=== PATIENT | female | born 1970 | race Caucasian/White ===

== ENCOUNTER → 2019-12-12 09:40 | Outpatient (CLI) | payer MEDICARE, SELFPAY ==
[2016-12-15 09:17] VITALS: BMI 32.7
[2019-12-12 12:14] LABS: Absolute Lymphocyte Count 1.62 X10^3/uL (0.83-4.51); Absolute Neutrophil Count 2.4 X10^3/uL (2.0-7.7); Basophil# 0.02 X10^3/uL; Basophil% 0.4 % (0-1); Eosinophil# 0.07 X10^3/uL; Eosinophils% 1.5 % (0-5); Hematocrit 38.8 % (37-47); Hemoglobin 13.2 g/dL (12.0-15.0); Lymphocyte # 1.62 X10^3/ul (4.0); Lymphocyte % 35.8 % (19-41); Mean Corpuscular Hgb 29.6 pg (27.0-32.0); Mean Platelet Vol. 11.5 fl (6.2-12.0); Monocyte# 0.45 X10^3/uL; NRBC Flagged by Analyzer 0 % (0-5); Neutrophil # 2.35 X10^3/uL (2.7-7.7); Neutrophil % 52.1 % (47-70); Platelet Count 170 K/mm3 (150-450); RBC Distribution Width CV 12.5 % (11.6-14.6); RBC Distribution Width SD 39.3 fl (35.1-43.9); Red Blood Count 4.46 M/mm3 (4.2-5.4); White Blood Count 4.5 K/mm3 (4.4-11.0)
[2019-12-12 12:28] LABS: Vitamin B12 > 2000 pg/mL (211-911)
[2019-12-12 12:51] LABS: ALB/GLOB Ratio 1.4 RATIO (0.9-2.4); AST(SGOT) 19 U/L (15-37); Alanine Aminotransfer ALT/SGPT 42 U/L (13-56); Alkaline Phosphatase 59 U/L (45-117); Anion Gap 6 (5-15); BUN 13 mg/dL (7-18); BUN/Creat Ratio 16.5 RATIO (10-20); Calcium,Total 9.2 mg/dL (8.5-10.1); Chloride 107 mmol/L (98-107); Cholesterol 180 mg/dL (200); Creatinine, Serum 0.79 mg/dL (0.55-1.02); EST Glomerular Filtration Rate 82 mL/min (>60); Est Glom Filt Rate - Afr Amer 99 mL/min (>60); Globulin 2.9 g/dL (2.2-4.2); Glucose 97 mg/dL (74-106); High Density Lipoprotein 74 mg/dL; Potassium 3.7 mmol/L (3.5-5.1); Protein, Total 6.9 g/dL (6.4-8.2); Sodium Level 140 mmol/L (136-145); T4 Free Direct 1.05 ng/dL (0.76-1.46); Thyroid Stim Hormone (TSH) 0.58 uIU/mL (0.358-3.74); Triglycerides 94 mg/dL; Very Low Density Lipoprotein 19 mg/dL (5-40)
== END ==
PROVIDERS: Family Provider Family Medicine; PCP Family Medicine; Visit Provider Family Medicine
DX: Z00.00 Encounter for general adult medical examination without abnormal findings (principal); E78.5 Hyperlipidemia, unspecified; L65.9 Nonscarring hair loss, unspecified; R20.2 Paresthesia of skin; Z51.81 Encounter for therapeutic drug level monitoring
CPT/HCPCS: 36415; 80053; 80061; 82607; 83921; 84439; 84443; 85025

== ENCOUNTER → 2019-12-14 11:57 | Outpatient (CLI) | payer MEDICARE, SELFPAY ==
--- NOTE | 2019-12-14 12:16 | BI_ITS ---
MAMMOGRAPHY - BILATERAL SCREENING REASON FOR EXAM: Female, 49 years old. Routine annual screening examination. PERTINENT HISTORY: Non-contributory. TECHNIQUE: Digital bilateral breast roxy (3D mammographic acquisition) in the CC and MLO projections. 2-D mediolateral oblique (MLO) and craniocaudad (CC) views of both breasts were obtained. CAD: Full Field Digital Mammography with Computer Added Detection was performed. COMPARISON: Comparison is made with prior study dated December 08, 2015 and November 25, 2014. FINDINGS: Breast Composition: There are scattered areas of fibroglandular density. There are no dominant masses or suspicious calcifications. No other significant abnormalities are identified. There has been no significant change since the prior study. BI/SCREEN MAMM (CAD) W/ROXY BILAT IMPRESSION: Stable bilateral screening mammogram. Yearly follow-up mammogram recommended. (A) ASSESSMENT CATEGORY: BIRADS Category 1: Negative. A letter regarding these results will be sent to the patient by the facility within 30 days. Approximately 10% of breast cancers are not detected by mammography. A normal mammogram should not delay biopsy of a clinically suspicious abnormality. [id number] Electronically Signed: Dennis Cao, at 13:23 EST , Service support ,
== END ==
PROVIDERS: Family Provider Family Medicine; PCP Family Medicine; Referring Provider Advanced Practice Midwife; Visit Provider Advanced Practice Midwife
DX: Z12.31 Encounter for screening mammogram for malignant neoplasm of breast (principal)
CPT/HCPCS: 77063; 77067

== ENCOUNTER → 2021-08-24 | Outpatient (CLI) | payer MEDICARE, SELFPAY ==
[2021-08-27 18:05] LABS: HPV APTIMA, High Risk Negative (Negative)
== END | disposition home or self-care (01) ==
LOC: LABSPEC 14:12
PROVIDERS: PCP Family Medicine; Visit Provider Obstetrics & Gynecology
DX: Z12.4 Encounter for screening for malignant neoplasm of cervix (principal)
CPT/HCPCS: 87624; 88175; G0145

== ENCOUNTER → 2021-10-07 15:33 | Outpatient (CLI) | payer MEDICARE, SELFPAY ==
--- NOTE | 2021-10-07 15:36 | BI_ITS ---
MAMMOGRAPHY - BILATERAL SCREENING REASON FOR EXAM: Female, 50 years old. Routine annual screening examination. PERTINENT HISTORY: Non-contributory. Prior right excisional breast biopsy. TECHNIQUE: Digital bilateral breast roxy (3D mammographic acquisition) in the CC and MLO projections. 2-D mediolateral oblique (MLO) and craniocaudad (CC) views of both breasts were obtained. CAD: Full Field Digital Mammography with Computer Added Detection was performed. COMPARISON: Comparison is made with prior study dated 12/14/2019 and 12/08/2015. FINDINGS: Breast Composition: There are scattered areas of fibroglandular density. There are no dominant masses or suspicious calcifications. No other significant abnormalities are identified. There has been no significant change since the prior study. BI/SCRN MAMM (CAD)W/ROXY BILAT IMPRESSION: Stable bilateral screening mammogram. Yearly follow-up mammogram recommended. (A) ASSESSMENT CATEGORY: BIRADS Category 1: Negative. A letter regarding these results will be sent to the patient by the facility within 30 days. Approximately 10% of breast cancers are not detected by mammography. A normal mammogram should not delay biopsy of a clinically suspicious abnormality. [id number] Electronically Signed: Dennis Cao MD at 8:24 EST , Service support ,
== END ==
PROVIDERS: PCP Family Medicine; Referring Provider Obstetrics & Gynecology; Visit Provider Obstetrics & Gynecology
DX: Z12.31 Encounter for screening mammogram for malignant neoplasm of breast (principal)
CPT/HCPCS: 77063; 77067

== ENCOUNTER → 2023-04-29 | Outpatient (CLI) | payer MEDICARE, SELFPAY ==
[2023-04-29 15:28] LABS: Absolute Lymphocyte Count 1.81 X10^3/uL (0.83-4.51); Absolute Neutrophil Count 2.3 X10^3/uL (2.0-7.7); Basophil# 0.03 X10^3/uL; Basophil% 0.6 % (0-1); Eosinophil# 0.05 X10^3/uL; Eosinophils% 1.1 % (0-5); Hematocrit 41.3 % (37-47); Lymphocyte # 1.81 X10^3/ul (0.83-4.51); Lymphocyte % 38.8 % (19-41); Mean Corp Hgb Conc 33.9 g/dL (32-36); Mean Corpuscular Hgb 30.4 pg (27.0-32.0); Mean Corpuscular Volume 89.6 fL (81-99); Mean Platelet Vol. 11.7 fl (6.2-12.0); Monocyte# 0.46 X10^3/uL; Monocyte% 9.9 % (0-10); NRBC Flagged by Analyzer 0 % (0-5); Neutrophil # 2.31 X10^3/uL (2.7-7.7); Neutrophil % 49.6 % (47-70); Platelet Count 189 K/mm3 (150-450); RBC Distribution Width CV 12.3 % (11.6-14.6); RBC Distribution Width SD 40.1 fl (35.1-43.9); Red Blood Count 4.61 M/mm3 (4.2-5.4); White Blood Count 4.7 K/mm3 (4.4-11.0)
[2023-04-29 15:51] LABS: Vitamin B12 1386 pg/mL (211-911); Vitamin D,25 Hydroxy 64.1 ng/mL
[2023-04-29 16:00] LABS: ALB/GLOB Ratio 1.3 RATIO (0.9-2.4); AST(SGOT) 22 U/L (15-37); Alanine Aminotransfer ALT/SGPT 34 U/L (13-56); Albumin, Serum 4.1 g/dL (3.2-5.0); Alkaline Phosphatase 62 U/L (45-117); Anion Gap 6 (5-15); BUN 20 mg/dL (7-18); BUN/Creat Ratio 26.9 RATIO (10-20); Calcium,Total 9.2 mg/dL (8.5-10.1); Chloride 109 mmol/L (98-107); Cholesterol 185 mg/dL (200); Creatinine, Serum 0.74 mg/dL (0.55-1.02); EST Glomerular Filtration Rate 86 mL/min (>60); Est Glom Filt Rate - Afr Amer 104 mL/min (>60); Globulin 3.2 g/dL (2.2-4.2); Glucose 95 mg/dL (74-106); High Density Lipoprotein 77 mg/dL; Potassium 4.1 mmol/L (3.5-5.1); Protein, Total 7.3 g/dL (6.4-8.2); Sodium Level 142 mmol/L (136-145); Thyroid Stim Hormone (TSH) 0.57 uIU/mL (0.358-3.74); Triglycerides 110 mg/dL; Very Low Density Lipoprotein 22 mg/dL (5-40)
== END | disposition home or self-care (01) ==
LOC: BFHLAB 13:03
PROVIDERS: PCP Family Medicine; Referring Provider Family Medicine; Visit Provider Family Medicine
DX: Z00.00 Encounter for general adult medical examination without abnormal findings (principal); R53.83 Other fatigue; E55.9 Vitamin D deficiency, unspecified; E53.8 Deficiency of other specified B group vitamins; E78.5 Hyperlipidemia, unspecified
CPT/HCPCS: 36415; 80053; 80061; 82306; 82607; 84443; 85025

== ENCOUNTER → 2023-09-20 | Outpatient (CLI) | payer MEDICARE, SELFPAY ==
[2023-09-20 12:38] LABS: Absolute Lymphocyte Count 1.97 X10^3/uL (0.83-4.51); Basophil# 0.01 X10^3/uL; Basophil% 0.2 % (0-1); Eosinophil# 0.08 X10^3/uL; Eosinophils% 1.5 % (0-5); Hemoglobin 13.4 g/dL (12.0-15.0); Lymphocyte # 1.97 X10^3/ul (0.83-4.51); Lymphocyte % 36.1 % (19-41); Mean Corp Hgb Conc 32.7 g/dL (32-36); Mean Corpuscular Hgb 29.8 pg (27.0-32.0); Mean Corpuscular Volume 91.1 fL (81-99); Mean Platelet Vol. 11.1 fl (6.2-12.0); Monocyte# 0.44 X10^3/uL; Monocyte% 8.1 % (0-10); NRBC Flagged by Analyzer 0 % (0-5); Neutrophil # 2.95 X10^3/uL (2.7-7.7); Neutrophil % 53.9 % (47-70); Platelet Count 203 K/mm3 (150-450); RBC Distribution Width CV 12.3 % (11.6-14.6); RBC Distribution Width SD 40.3 fl (35.1-43.9); White Blood Count 5.5 K/mm3 (4.4-11.0)
[2023-09-20 12:42] LABS: Color, Urine Yellow (Yellow); Glucose, Dipstick Normal (Normal); Ketone-Dipstick 5 mg/dl (Negative); Leukocyte Esterase-Dipstick 25 /ul (Negative); Nitrite-Dipstick Negative (Negative); Occult Blood-Urine Negative /ul (Negative); Protein-Dipstick 15 mg/dl (Negative); Specific Gravity, Urine 1.025 (1.002-1.030); Urine Bilirubin Dipstick Negative (Negative); Urine Clarity Sl. Cloudy (Clear); Urine Urobilinogen Normal (Normal)
[2023-09-20 13:15] LABS: Vitamin D,25 Hydroxy 55.3 ng/mL
[2023-09-20 13:47] LABS: ALB/GLOB Ratio 1.1 RATIO (0.9-2.4); AST(SGOT) 21 U/L (15-37); Alanine Aminotransfer ALT/SGPT 44 U/L (13-56); Albumin, Serum 3.7 g/dL (3.2-5.0); Alkaline Phosphatase 74 U/L (45-117); Anion Gap 6 (5-15); BUN 19 mg/dL (7-18); BUN/Creat Ratio 28.8 RATIO (10-20); Calcium,Total 9.2 mg/dL (8.5-10.1); Chloride 110 mmol/L (98-107); Cholesterol 178 mg/dL (200); Creatinine, Serum 0.66 mg/dL (0.55-1.02); EST Glomerular Filtration Rate 99 mL/min (>60); Est Glom Filt Rate - Afr Amer 120 mL/min (>60); Globulin 3.4 g/dL (2.2-4.2); Glucose 98 mg/dL (74-106); High Density Lipoprotein 72 mg/dL; Potassium 3.5 mmol/L (3.5-5.1); Protein, Total 7.1 g/dL (6.4-8.2); Sodium Level 143 mmol/L (136-145); T4 Free Direct 0.94 ng/dL (0.76-1.46); Thyroid Stim Hormone (TSH) 0.65 uIU/mL (0.358-3.74); Triglycerides 181 mg/dL; Very Low Density Lipoprotein 36 mg/dL (5-40)
== END | disposition home or self-care (01) ==
LOC: BFHLAB 10:51
PROVIDERS: PCP Family Medicine; Referring Provider Family Medicine; Visit Provider Family Medicine
DX: E78.5 Hyperlipidemia, unspecified (principal); L65.9 Nonscarring hair loss, unspecified; E55.9 Vitamin D deficiency, unspecified; R35.0 Frequency of micturition; R53.83 Other fatigue
CPT/HCPCS: 36415; 80053; 80061; 81002; 82306; 84439; 84443; 85025

== ENCOUNTER 2024-10-06 20:18 | Emergency (ER) | payer MEDICARE, SELFPAY ==
[2024-10-06 20:19] VITALS: BP 138/88; PULSE 111; RESP 18; TEMP 37.6; O2SAT 99; BMI 34.5
[2024-10-06 20:27] VITALS: TEMP 37.6; O2SAT 98
[2024-10-06] MEDS: 0.9% Normal Saline (1000mL) 1,000 ML 1000 ML IV (20:40)
[2024-10-06 20:49] LABS: Absolute Lymphocyte Count 2.82 X10^3/uL (0.83-4.51); Absolute Neutrophil Count 14.1 X10^3/uL (2.0-7.7); Basophil# 0.06 X10^3/uL; Basophil% 0.3 % (0-1); Eosinophil# 0.06 X10^3/uL; Eosinophils% 0.3 % (0-5); Hematocrit 38.3 % (37-47); Hemoglobin 13.2 g/dL (12.0-15.0); Lymphocyte # 2.82 X10^3/ul (0.83-4.51); Lymphocyte % 15.6 % (19-41); Mean Corp Hgb Conc 34.5 g/dL (32-36); Mean Corpuscular Hgb 30.6 pg (27.0-32.0); Mean Corpuscular Volume 88.7 fL (81-99); Mean Platelet Vol. 10.8 fl (6.2-12.0); Monocyte# 0.86 X10^3/uL; Monocyte% 4.8 % (0-10); NRBC Flagged by Analyzer 0 % (0-5); Neutrophil # 14.11 X10^3/uL (2.7-7.7); Neutrophil % 78.2 % (47-70); Platelet Count 199 K/mm3 (150-450); RBC Distribution Width SD 41.9 fl (35.1-43.9); Red Blood Count 4.32 M/mm3 (4.2-5.4); White Blood Count 18.1 K/mm3 (4.4-11.0)
[2024-10-06 21:08] LABS: ALB/GLOB Ratio 1.2 RATIO (0.9-2.4); AST(SGOT) 33 U/L (15-37); Alanine Aminotransfer ALT/SGPT 38 U/L (13-56); Albumin, Serum 3.6 g/dL (3.2-5.0); Alkaline Phosphatase 74 U/L (45-117); Anion Gap 8 (5-15); BUN 20 mg/dL (7-18); BUN/Creat Ratio 23.3 RATIO (10-20); Calcium,Total 8.4 mg/dL (8.5-10.1); Chloride 110 mmol/L (98-107); Creatinine, Serum 0.86 mg/dL (0.55-1.02); EST Glomerular Filtration Rate 73 mL/min (>60); Est Glom Filt Rate - Afr Amer 88 mL/min (>60); Estimated Creatinine Clearance 80.91 ml/min; Globulin 3.1 g/dL (2.2-4.2); Glucose 158 mg/dL (74-106); Lipase 51 U/L (13-75); Potassium 3.4 mmol/L (3.5-5.1); Protein, Total 6.7 g/dL (6.4-8.2); Sodium Level 142 mmol/L (136-145); Troponin-I HS < 3 pg/mL (3.0-54.0)
[2024-10-06 21:19] VITALS: BP 137/94; PULSE 106; RESP 18; O2SAT 99
[2024-10-06] MEDS: Morphine 4 MG/ML Syringe IV ×2 (21:19→21:44)
[2024-10-06] MEDS: Ondansetron 4 MG/2 ML Vial IV (21:20)
[2024-10-06] MEDS: LORazepam 2 MG/ML Syringe 0.5 MG IV (21:28)
[2024-10-06 21:59] LABS: Alcohol, Blood (Medical)-Serum < 3.0 mg/dL
[2024-10-06 22:00] VITALS: BP 139/81; PULSE 105; RESP 16; O2SAT 97
[2024-10-06] MEDS: HYDROmorphone 0.5 MG/0.5 ML SYRINGE IV (22:25)
[2024-10-06 23:00] VITALS: BP 134/77; PULSE 104; RESP 18; O2SAT 96
[2024-10-06 23:30] VITALS: BP 134/77; PULSE 108; RESP 18; TEMP 36.9; O2SAT 96
[2024-10-07] VITALS: BP 131/89; PULSE 105; RESP 18; O2SAT 95
[2024-10-07] MEDS: fentaNYL 100 MCG/2 ML Ampul 50 MCG IV (00:21)
== END 2024-10-07 00:49 | disposition other institution (70) ==
PROVIDERS: Emergency Provider Emergency Medicine; PCP Family Medicine; Visit Provider Emergency Medicine
DX: S22.43XA Multiple fractures of ribs, bilateral, initial encounter for closed fracture (principal); S80.02XA Contusion of left knee, initial encounter; K66.1 Hemoperitoneum; V89.2XXA Person injured in unspecified motor-vehicle accident, traffic, initial encounter
CPT/HCPCS: 70450; 71260; 72125; 73564; 74177; 80053; 82077; 83690; 84484; 85025; 93005; 96361; 96374; 96375; 96376; 99285; J7030; Q9967; A4216; J2405

== ENCOUNTER 2024-10-22 15:28 | Inpatient (IN) | payer MEDICARE, SELFPAY ==
[2024-10-22 15:34] VITALS: BP 126/69; PULSE 90; RESP 16; TEMP 37; O2SAT 98; BMI 30.3
[2024-10-22] MEDS: Acetaminophen 500 MG Tablet 1000 MG PO ×2 (18:03→20:30)
[2024-10-22] MEDS: Hyoscyamine Sulfate 0.125 MG Tablet PO ×2 (18:18→20:33)
[2024-10-22] MEDS: HYDROmorphone 2 MG TABLET PO ×3 (18:19→21:53)
[2024-10-22] MEDS: traZODone 50 MG Tablet PO (20:25)
[2024-10-22] MEDS: hydrOXYzine PAM 25 MG Capsule PO (20:25)
[2024-10-22] MEDS: Methocarbamol 750 MG Tablet PO (20:31)
[2024-10-22] MEDS: Atorvastatin Calcium 20 MG Tablet PO (20:31)
[2024-10-22] MEDS: Gabapentin 400 MG Capsule PO (21:54)
[2024-10-23] VITALS (10 sets, daily range): BP systolic 105–151; BP diastolic 61–88; PULSE 80–105; RESP 15–16; TEMP 35.9–37.5; O2SAT 95–96; BMI 30.2; BMI 30.4
[2024-10-23] MEDS: HYDROmorphone 2 MG TABLET PO ×6 (02:38→21:01)
[2024-10-23] MEDS: Acetaminophen 500 MG Tablet 1000 MG PO ×4 (05:17→21:02)
[2024-10-23] MEDS: Gabapentin 400 MG Capsule PO ×3 (05:17→21:01)
[2024-10-23] MEDS: Methocarbamol 750 MG Tablet PO ×3 (05:17→21:02)
[2024-10-23 06:36] LABS: Absolute Lymphocyte Count 1.73 X10^3/uL (0.83-4.51); Absolute Neutrophil Count 4.7 X10^3/uL (2.0-7.7); Basophil# 0.03 X10^3/uL; Basophil% 0.4 % (0-1); Eosinophil# 0.15 X10^3/uL; Eosinophils% 2.1 % (0-5); Hematocrit 23.7 % (37-47); Hemoglobin 7.4 g/dL (12.0-15.0); Lymphocyte # 1.73 X10^3/ul (0.83-4.51); Lymphocyte % 23.7 % (19-41); Mean Corp Hgb Conc 31.2 g/dL (32-36); Mean Corpuscular Hgb 28.8 pg (27.0-32.0); Mean Corpuscular Volume 92.2 fL (81-99); Mean Platelet Vol. 9.5 fl (6.2-12.0); Monocyte# 0.68 X10^3/uL; Monocyte% 9.3 % (0-10); NRBC Flagged by Analyzer 0 % (0-5); Neutrophil # 4.67 X10^3/uL (2.7-7.7); Neutrophil % 64.1 % (47-70); Platelet Count 454 K/mm3 (150-450); RBC Distribution Width CV 13.1 % (11.6-14.6); RBC Distribution Width SD 43.8 fl (35.1-43.9); Red Blood Count 2.57 M/mm3 (4.2-5.4); White Blood Count 7.3 K/mm3 (4.4-11.0)
[2024-10-23 06:47] LABS: Anion Gap 7 (5-15); BUN 10 mg/dL (7-18); BUN/Creat Ratio 23.3 RATIO (10-20); Calcium,Total 8.8 mg/dL (8.5-10.1); Chloride 109 mmol/L (98-107); Creatinine, Serum 0.43 mg/dL (0.55-1.02); EST Glomerular Filtration Rate 161 mL/min (>60); Est Glom Filt Rate - Afr Amer 195 mL/min (>60); Glucose 95 mg/dL (74-106); Potassium 3.2 mmol/L (3.5-5.1); Sodium Level 141 mmol/L (136-145)
[2024-10-23] MEDS: Hyoscyamine Sulfate 0.125 MG Tablet PO ×4 (07:01→21:03)
[2024-10-23] MEDS: Potassium Chloride Oral Tablet 20 MEQ 40 MEQ PO (10:01)
[2024-10-23] MEDS: Famotidine 20 MG Tablet 40 MG PO (10:03)
[2024-10-23] MEDS: Lidocaine 5% Patch 2 PATCH TOPICAL (10:04)
[2024-10-23] MEDS: Triamterene 37.5MG/Hctz 25MG Capsule 1 CAP PO (10:04)
[2024-10-23] MEDS: Tuberculin,Purif.prot.deriv. 50 TU/ML Vial 0.1 ML ID (10:05)
[2024-10-23] MEDS: MENTHOL 226.8 GM JAR 1 APPLIC TOPICAL (10:09)
[2024-10-23] MEDS: Furosemide 20 MG/2 ML VIAL IV (15:37)
[2024-10-23] MEDS: traZODone 50 MG Tablet PO (21:01)
[2024-10-23] MEDS: Atorvastatin Calcium 20 MG Tablet PO (21:02)
[2024-10-23] MEDS: hydrOXYzine PAM 25 MG Capsule PO (21:07)
[2024-10-24] MEDS: Acetaminophen 500 MG Tablet 1000 MG PO ×4 (05:22→20:41)
[2024-10-24] MEDS: Gabapentin 400 MG Capsule PO ×3 (05:22→20:41)
[2024-10-24] MEDS: Methocarbamol 750 MG Tablet PO ×3 (05:22→20:40)
[2024-10-24 06:49] LABS: Cholesterol 91 mg/dL (200); High Density Lipoprotein 19 mg/dL; Magnesium 1.6 mg/dL (1.6-2.6); Triglycerides 152 mg/dL; Very Low Density Lipoprotein 30 mg/dL (5-40)
[2024-10-24] MEDS: Hyoscyamine Sulfate 0.125 MG Tablet PO ×4 (07:05→20:43)
[2024-10-24] MEDS: Triamterene 37.5MG/Hctz 25MG Capsule 1 CAP PO (09:58)
[2024-10-24] MEDS: Famotidine 20 MG Tablet 40 MG PO (09:58)
[2024-10-24] MEDS: Lidocaine 5% Patch 2 PATCH TOPICAL (09:58)
[2024-10-24] MEDS: Potassium Chloride Oral Tablet 20 MEQ PO (09:58)
[2024-10-24 10:00] VITALS: BP 129/76; PULSE 94; RESP 95; TEMP 36.5; O2SAT 18; O2SAT 95
[2024-10-24] MEDS: HYDROmorphone 2 MG TABLET PO ×4 (10:04→20:40)
[2024-10-24 17:13] LABS: Hematocrit 34.3 % (37-47); Hemoglobin 11.1 g/dL (12.0-15.0)
[2024-10-24] MEDS: Ensure Plus High Protein 120 ML LIQUID PO (17:18)
[2024-10-24] MEDS: Atorvastatin Calcium 20 MG Tablet PO (20:39)
[2024-10-24] MEDS: traZODone 50 MG Tablet PO (20:40)
[2024-10-25] MEDS: HYDROmorphone 2 MG TABLET PO ×6 (02:36→21:40)
[2024-10-25] MEDS: Gabapentin 400 MG Capsule PO ×3 (06:12→21:39)
[2024-10-25] MEDS: Methocarbamol 750 MG Tablet PO ×3 (06:12→21:39)
[2024-10-25] MEDS: Acetaminophen 500 MG Tablet 1000 MG PO ×4 (06:13→21:38)
[2024-10-25] MEDS: Hyoscyamine Sulfate 0.125 MG Tablet PO ×4 (06:14→21:40)
[2024-10-25 07:21] LABS: Anion Gap 8 (5-15); BUN 11 mg/dL (7-18); Calcium,Total 9.2 mg/dL (8.5-10.1); Chloride 104 mmol/L (98-107); EST Glomerular Filtration Rate 136 mL/min (>60); Est Glom Filt Rate - Afr Amer 165 mL/min (>60); Estimated Creatinine Clearance 133.57 ml/min; Glucose 104 mg/dL (74-106); Potassium 3.3 mmol/L (3.5-5.1); Sodium Level 137 mmol/L (136-145)
[2024-10-25] MEDS: Potassium Chloride Oral Tablet 20 MEQ PO (09:42)
[2024-10-25] MEDS: Famotidine 20 MG Tablet 40 MG PO (09:43)
[2024-10-25] MEDS: Triamterene 37.5MG/Hctz 25MG Capsule 1 CAP PO (09:44)
[2024-10-25] MEDS: Ensure Plus High Protein 120 ML LIQUID PO ×3 (09:55→17:27)
[2024-10-25] MEDS: Potassium Chloride Oral Tablet 20 MEQ 40 MEQ PO (14:09)
[2024-10-25 14:40] LABS: Magnesium 1.6 mg/dL (1.6-2.6)
[2024-10-25 15:37] VITALS: BP 118/78; PULSE 82; RESP 18; TEMP 36.2; O2SAT 100
[2024-10-25] MEDS: Lidocaine 5% Patch 2 PATCH TOPICAL (17:46)
[2024-10-25] MEDS: Magnesium Chloride 64 MG Delay Rel.Tablet 128 MG PO (21:39)
[2024-10-25] MEDS: Atorvastatin Calcium 20 MG Tablet PO (21:39)
[2024-10-26] MEDS: HYDROmorphone 2 MG TABLET PO ×6 (03:33→21:12)
[2024-10-26] MEDS: Acetaminophen 500 MG Tablet 1000 MG PO ×4 (05:41→21:03)
[2024-10-26] MEDS: Gabapentin 400 MG Capsule PO ×3 (05:41→21:12)
[2024-10-26] MEDS: Methocarbamol 750 MG Tablet PO ×3 (05:42→21:04)
[2024-10-26] MEDS: Hyoscyamine Sulfate 0.125 MG Tablet PO ×4 (07:03→21:05)
[2024-10-26 09:10] VITALS: BP 122/86; PULSE 104; TEMP 37; O2SAT 94
[2024-10-26] MEDS: Ensure Plus High Protein 120 ML LIQUID PO ×3 (09:12→17:47)
[2024-10-26] MEDS: Potassium Chloride Oral Tablet 20 MEQ PO (09:13)
[2024-10-26] MEDS: Famotidine 20 MG Tablet 40 MG PO (09:14)
[2024-10-26] MEDS: Triamterene 37.5MG/Hctz 25MG Capsule 1 CAP PO (09:14)
[2024-10-26] MEDS: Lidocaine 5% Patch 2 PATCH TOPICAL (09:14)
[2024-10-26] MEDS: Magnesium Chloride 64 MG Delay Rel.Tablet 128 MG PO ×2 (09:14→21:03)
[2024-10-26 09:42] LABS: Anion Gap 6 (5-15); BUN 13 mg/dL (7-18); BUN/Creat Ratio 25.5 RATIO (10-20); Calcium,Total 9.1 mg/dL (8.5-10.1); Chloride 104 mmol/L (98-107); Creatinine, Serum 0.51 mg/dL (0.55-1.02); EST Glomerular Filtration Rate 133 mL/min (>60); Est Glom Filt Rate - Afr Amer 161 mL/min (>60); Estimated Creatinine Clearance 130.96 ml/min; Glucose 100 mg/dL (74-106); Potassium 3.8 mmol/L (3.5-5.1); Sodium Level 138 mmol/L (136-145)
[2024-10-26] MEDS: Atorvastatin Calcium 20 MG Tablet PO (21:03)
[2024-10-26] MEDS: traZODone 50 MG Tablet PO (21:12)
[2024-10-27] MEDS: HYDROmorphone 2 MG TABLET PO ×5 (02:19→19:59)
[2024-10-27] MEDS: Hydrocortisone 2.5% Crm 1 APPLIC TOPICAL ×2 (04:00→12:02)
[2024-10-27] MEDS: Methocarbamol 750 MG Tablet PO ×3 (05:29→21:43)
[2024-10-27] MEDS: Gabapentin 400 MG Capsule PO ×3 (05:29→21:43)
[2024-10-27] MEDS: Acetaminophen 500 MG Tablet 1000 MG PO ×4 (05:29→21:45)
[2024-10-27] MEDS: Hyoscyamine Sulfate 0.125 MG Tablet PO ×4 (05:31→21:44)
[2024-10-27 08:57] VITALS: BP 138/98; PULSE 94; TEMP 36.6; O2SAT 95
[2024-10-27] MEDS: Triamterene 37.5MG/Hctz 25MG Capsule 1 CAP PO (09:01)
[2024-10-27] MEDS: Potassium Chloride Oral Tablet 20 MEQ PO (09:01)
[2024-10-27] MEDS: Ensure Plus High Protein 120 ML LIQUID PO ×3 (09:01→15:57)
[2024-10-27] MEDS: Lidocaine 5% Patch 2 PATCH TOPICAL (09:01)
[2024-10-27] MEDS: Famotidine 20 MG Tablet 40 MG PO (09:02)
[2024-10-27] MEDS: Magnesium Chloride 64 MG Delay Rel.Tablet 128 MG PO ×2 (09:02→21:44)
[2024-10-27] MEDS: Atorvastatin Calcium 20 MG Tablet PO (21:46)
[2024-10-27] MEDS: traZODone 50 MG Tablet PO (21:50)
[2024-10-28] MEDS: HYDROmorphone 2 MG TABLET PO ×6 (01:30→18:52)
[2024-10-28] MEDS: Acetaminophen 500 MG Tablet 1000 MG PO ×3 (05:26→18:53)
[2024-10-28] MEDS: Methocarbamol 750 MG Tablet PO ×3 (05:27→21:11)
[2024-10-28] MEDS: Gabapentin 400 MG Capsule PO ×3 (05:27→21:12)
[2024-10-28] MEDS: Hyoscyamine Sulfate 0.125 MG Tablet PO ×4 (07:20→21:12)
[2024-10-28 07:55] LABS: Anion Gap 12 (5-15); BUN 12 mg/dL (7-18); BUN/Creat Ratio 21.5 RATIO (10-20); Chloride 102 mmol/L (98-107); Creatinine, Serum 0.56 mg/dL (0.55-1.02); EST Glomerular Filtration Rate 120 mL/min (>60); Est Glom Filt Rate - Afr Amer 145 mL/min (>60); Estimated Creatinine Clearance 119.26 ml/min; Glucose 129 mg/dL (74-106); Magnesium 1.6 mg/dL (1.6-2.6); Potassium 3.3 mmol/L (3.5-5.1); Sodium Level 137 mmol/L (136-145)
[2024-10-28] MEDS: Ensure Plus High Protein 120 ML LIQUID PO ×3 (09:14→18:52)
[2024-10-28 10:11] VITALS: BP 119/84; PULSE 84; RESP 16; TEMP 36.3; O2SAT 98
[2024-10-28] MEDS: Potassium Chloride Oral Tablet 20 MEQ 40 MEQ PO (10:14)
[2024-10-28] MEDS: Lidocaine 5% Patch 2 PATCH TOPICAL (10:14)
[2024-10-28] MEDS: Famotidine 20 MG Tablet 40 MG PO (10:15)
[2024-10-28] MEDS: Magnesium Chloride 64 MG Delay Rel.Tablet 128 MG PO ×2 (10:15→21:11)
[2024-10-28] MEDS: Triamterene 37.5MG/Hctz 25MG Capsule 1 CAP PO (10:16)
[2024-10-28 10:29] VITALS: RESP 16
[2024-10-28] MEDS: Hydrocortisone 2.5% Crm 1 APPLIC TOPICAL (18:53)
[2024-10-28] MEDS: Potassium Chloride Oral Tablet 20 MEQ PO (18:53)
[2024-10-28] MEDS: Atorvastatin Calcium 20 MG Tablet PO (21:11)
[2024-10-28] MEDS: traZODone 50 MG Tablet PO (21:16)
[2024-10-29] MEDS: HYDROmorphone 2 MG TABLET PO ×5 (02:14→22:09)
[2024-10-29] MEDS: Gabapentin 400 MG Capsule PO ×3 (05:27→22:07)
[2024-10-29] MEDS: Methocarbamol 750 MG Tablet PO ×3 (05:27→22:06)
[2024-10-29] MEDS: Acetaminophen 500 MG Tablet 1000 MG PO ×4 (05:27→22:07)
[2024-10-29 08:29] LABS: Anion Gap 8 (5-15); BUN 15 mg/dL (7-18); BUN/Creat Ratio 31.6 RATIO (10-20); Calcium,Total 9.3 mg/dL (8.5-10.1); Chloride 105 mmol/L (98-107); Creatinine, Serum 0.48 mg/dL (0.55-1.02); EST Glomerular Filtration Rate 144 mL/min (>60); Est Glom Filt Rate - Afr Amer 174 mL/min (>60); Estimated Creatinine Clearance 139.14 ml/min; Glucose 106 mg/dL (74-106); Potassium 3.8 mmol/L (3.5-5.1); Sodium Level 137 mmol/L (136-145)
[2024-10-29 09:54] VITALS: BP 128/87; PULSE 102; RESP 18; TEMP 35.9; O2SAT 97
[2024-10-29] MEDS: Ensure Plus High Protein 120 ML LIQUID PO ×3 (09:57→18:23)
[2024-10-29] MEDS: Famotidine 20 MG Tablet 40 MG PO (09:58)
[2024-10-29] MEDS: Potassium Chloride Oral Tablet 20 MEQ PO ×2 (09:58→18:24)
[2024-10-29] MEDS: Triamterene 37.5MG/Hctz 25MG Capsule 1 CAP PO (09:58)
[2024-10-29] MEDS: Magnesium Chloride 64 MG Delay Rel.Tablet 128 MG PO ×2 (09:58→22:08)
[2024-10-29] MEDS: Lidocaine 5% Patch 2 PATCH TOPICAL (11:03)
[2024-10-29] MEDS: Hyoscyamine Sulfate 0.125 MG Tablet PO ×3 (11:04→22:09)
[2024-10-29] MEDS: Atorvastatin Calcium 20 MG Tablet PO (22:08)
[2024-10-29] MEDS: traZODone 50 MG Tablet PO (22:29)
[2024-10-30] MEDS: HYDROmorphone 2 MG TABLET PO ×5 (04:21→21:42)
[2024-10-30] MEDS: Gabapentin 400 MG Capsule PO ×3 (05:36→21:40)
[2024-10-30] MEDS: Methocarbamol 750 MG Tablet PO ×3 (05:36→21:40)
[2024-10-30] MEDS: Acetaminophen 500 MG Tablet 1000 MG PO ×4 (05:37→21:41)
[2024-10-30 05:47] LABS: Absolute Lymphocyte Count 1.45 X10^3/uL (0.83-4.51); Absolute Neutrophil Count 4.9 X10^3/uL (2.0-7.7); Basophil# 0.03 X10^3/uL; Basophil% 0.4 % (0-1); Eosinophil# 0.09 X10^3/uL; Eosinophils% 1.2 % (0-5); Hematocrit 36.5 % (37-47); Hemoglobin 11.9 g/dL (12.0-15.0); Lymphocyte # 1.45 X10^3/ul (0.83-4.51); Lymphocyte % 20.1 % (19-41); Mean Corp Hgb Conc 32.6 g/dL (32-36); Mean Corpuscular Hgb 27.8 pg (27.0-32.0); Mean Corpuscular Volume 85.3 fL (81-99); Mean Platelet Vol. 9.5 fl (6.2-12.0); Monocyte# 0.73 X10^3/uL; Monocyte% 10.1 % (0-10); NRBC Flagged by Analyzer 0 % (0-5); Neutrophil % 67.9 % (47-70); Platelet Count 269 K/mm3 (150-450); RBC Distribution Width CV 14.6 % (11.6-14.6); RBC Distribution Width SD 44.7 fl (35.1-43.9); Red Blood Count 4.28 M/mm3 (4.2-5.4); White Blood Count 7.2 K/mm3 (4.4-11.0)
[2024-10-30 06:14] LABS: Anion Gap 8 (5-15); BUN 12 mg/dL (7-18); BUN/Creat Ratio 23.3 RATIO (10-20); Calcium,Total 9.5 mg/dL (8.5-10.1); Chloride 102 mmol/L (98-107); Creatinine, Serum 0.51 mg/dL (0.55-1.02); EST Glomerular Filtration Rate 131 mL/min (>60); Est Glom Filt Rate - Afr Amer 159 mL/min (>60); Estimated Creatinine Clearance 130.96 ml/min; Glucose 114 mg/dL (74-106); Potassium 3.5 mmol/L (3.5-5.1); Sodium Level 135 mmol/L (136-145)
[2024-10-30] MEDS: Hyoscyamine Sulfate 0.125 MG Tablet PO ×4 (07:09→21:39)
[2024-10-30] MEDS: Potassium Chloride Oral Tablet 20 MEQ PO ×2 (09:40→17:11)
[2024-10-30] MEDS: Magnesium Chloride 64 MG Delay Rel.Tablet 128 MG PO ×2 (09:40→21:40)
[2024-10-30] MEDS: Famotidine 20 MG Tablet 40 MG PO (09:40)
[2024-10-30] MEDS: Ensure Plus High Protein 120 ML LIQUID PO ×3 (09:40→17:11)
[2024-10-30] MEDS: Triamterene 37.5MG/Hctz 25MG Capsule 1 CAP PO (09:41)
[2024-10-30] MEDS: Lidocaine 5% Patch 2 PATCH TOPICAL (09:41)
[2024-10-30] MEDS: Tuberculin,Purif.prot.deriv. 50 TU/ML Vial 0.1 ML ID (09:42)
[2024-10-30 11:28] VITALS: BP 119/87; PULSE 100; RESP 18; TEMP 36.9; O2SAT 99
[2024-10-30 16:00] VITALS: BMI 28.6
[2024-10-30] MEDS: Atorvastatin Calcium 20 MG Tablet PO (21:39)
[2024-10-30] MEDS: traZODone 50 MG Tablet PO (21:42)
[2024-10-31] MEDS: Methocarbamol 750 MG Tablet PO ×3 (05:57→22:07)
[2024-10-31] MEDS: Gabapentin 400 MG Capsule PO ×3 (05:57→22:06)
[2024-10-31] MEDS: Acetaminophen 500 MG Tablet 1000 MG PO ×4 (05:57→22:07)
[2024-10-31] MEDS: Hyoscyamine Sulfate 0.125 MG Tablet PO ×4 (07:44→22:07)
[2024-10-31] MEDS: Ensure Plus High Protein 120 ML LIQUID PO ×3 (07:44→17:25)
[2024-10-31] MEDS: HYDROmorphone 2 MG TABLET PO ×5 (09:00→22:06)
[2024-10-31 09:11] VITALS: BP 126/82; PULSE 94; RESP 16; TEMP 36.6; O2SAT 98
[2024-10-31] MEDS: Famotidine 20 MG Tablet 40 MG PO (09:14)
[2024-10-31] MEDS: Magnesium Chloride 64 MG Delay Rel.Tablet 128 MG PO ×2 (09:15→22:07)
[2024-10-31] MEDS: Potassium Chloride Oral Tablet 20 MEQ PO ×2 (09:16→17:24)
[2024-10-31] MEDS: Lidocaine 5% Patch 2 PATCH TOPICAL (09:16)
[2024-10-31] MEDS: Triamterene 37.5MG/Hctz 25MG Capsule 1 CAP PO (11:40)
[2024-10-31 22:00] VITALS: PULSE 89; RESP 16; O2SAT 98
[2024-10-31] MEDS: Atorvastatin Calcium 20 MG Tablet PO (22:06)
[2024-10-31] MEDS: traZODone 50 MG Tablet PO (22:06)
[2024-11-01] MEDS: HYDROmorphone 2 MG TABLET PO ×5 (05:24→21:41)
[2024-11-01] MEDS: Gabapentin 400 MG Capsule PO ×3 (05:24→21:45)
[2024-11-01] MEDS: Acetaminophen 500 MG Tablet 1000 MG PO ×4 (05:24→21:42)
[2024-11-01] MEDS: Methocarbamol 750 MG Tablet PO ×3 (05:24→21:42)
[2024-11-01 10:04] VITALS: BP 111/87; PULSE 107; RESP 15; TEMP 36.6; O2SAT 95
[2024-11-01] MEDS: Potassium Chloride Oral Tablet 20 MEQ PO ×2 (10:07→17:27)
[2024-11-01] MEDS: Famotidine 20 MG Tablet 40 MG PO (10:07)
[2024-11-01] MEDS: Magnesium Chloride 64 MG Delay Rel.Tablet 128 MG PO ×2 (10:07→21:42)
[2024-11-01] MEDS: Lidocaine 5% Patch 2 PATCH TOPICAL (10:07)
[2024-11-01] MEDS: Triamterene 37.5MG/Hctz 25MG Capsule 1 CAP PO (10:07)
[2024-11-01] MEDS: Ensure Plus High Protein 120 ML LIQUID PO ×3 (10:09→17:27)
[2024-11-01] MEDS: Hyoscyamine Sulfate 0.125 MG Tablet PO ×2 (11:22→17:29)
[2024-11-01 11:28] VITALS: PULSE 105; RESP 16; O2SAT 97
[2024-11-01] MEDS: hydrOXYzine PAM 25 MG Capsule PO (20:53)
[2024-11-01] MEDS: traZODone 50 MG Tablet PO (21:41)
[2024-11-01] MEDS: Atorvastatin Calcium 20 MG Tablet PO (21:42)
[2024-11-02] MEDS: Gabapentin 400 MG Capsule PO (05:31)
[2024-11-02] MEDS: Methocarbamol 750 MG Tablet PO (05:32)
[2024-11-02] MEDS: Acetaminophen 500 MG Tablet 1000 MG PO ×2 (05:32→10:38)
[2024-11-02] MEDS: HYDROmorphone 2 MG TABLET PO ×2 (05:33→09:25)
[2024-11-02 06:01] VITALS: PULSE 101; RESP 16; O2SAT 98
[2024-11-02] MEDS: Lidocaine 5% Patch 2 PATCH TOPICAL (09:25)
[2024-11-02] MEDS: Triamterene 37.5MG/Hctz 25MG Capsule 1 CAP PO (09:26)
[2024-11-02] MEDS: Potassium Chloride Oral Tablet 20 MEQ PO (09:26)
[2024-11-02] MEDS: Magnesium Chloride 64 MG Delay Rel.Tablet 128 MG PO (09:26)
[2024-11-02] MEDS: Famotidine 20 MG Tablet 40 MG PO (09:26)
[2024-11-02 09:31] VITALS: BP 121/82; PULSE 107; RESP 16; TEMP 36.2; O2SAT 96
== END 2024-11-02 12:05 | disposition home health service (06) | DRG 559 ==
PROVIDERS: Internal Medicine; Admitting Provider Family Medicine Geriatric Medicine; PCP Family Medicine; Referring Provider Family Medicine Geriatric Medicine; Visit Provider Family Medicine Geriatric Medicine
DX: S22.42XD Multiple fractures of ribs, left side, subsequent encounter for fracture with routine healing (principal); K66.1 Hemoperitoneum; N39.0 Urinary tract infection, site not specified; R18.8 Other ascites; I10 Essential (primary) hypertension; E55.9 Vitamin D deficiency, unspecified; G62.9 Polyneuropathy, unspecified; K21.9 Gastro-esophageal reflux disease without esophagitis; E78.5 Hyperlipidemia, unspecified; J30.9 Allergic rhinitis, unspecified; K58.9 Irritable bowel syndrome, unspecified; V99.XXXD Unspecified transport accident, subsequent encounter; S22.31XD Fracture of one rib, right side, subsequent encounter for fracture with routine healing; H91.90 Unspecified hearing loss, unspecified ear; Z79.899 Other long term (current) drug therapy; S76.001D Unspecified injury of muscle, fascia and tendon of right hip, subsequent encounter; S36.4 Injury of small intestine
CPT/HCPCS: 36415; 36430; 80048; 80061; 83735; 85014; 85018; 85025; 86850; 86900; 86901; 86920; 86922; 87811; 97110; 97162; 97166; 97530; 97535; 97802; J7040; P9016; A4216; J1940

== ENCOUNTER → 2024-11-13 | Outpatient (CLI) | payer MEDICARE, SELFPAY ==
[2024-11-13 15:10] LABS: Absolute Lymphocyte Count 2.56 X10^3/uL (0.83-4.51); Absolute Neutrophil Count 4.5 X10^3/uL (2.0-7.7); Basophil# 0.04 X10^3/uL; Basophil% 0.5 % (0-1); Eosinophil# 0.14 X10^3/uL; Eosinophils% 1.8 % (0-5); Hematocrit 41.7 % (37-47); Hemoglobin 13.5 g/dL (12.0-15.0); Lymphocyte # 2.56 X10^3/ul (0.83-4.51); Lymphocyte % 32.3 % (19-41); Mean Corp Hgb Conc 32.4 g/dL (32-36); Mean Corpuscular Hgb 27.3 pg (27.0-32.0); Mean Corpuscular Volume 84.2 fL (81-99); Mean Platelet Vol. 10.5 fl (6.2-12.0); Monocyte# 0.63 X10^3/uL; Monocyte% 7.9 % (0-10); NRBC Flagged by Analyzer 0 % (0-5); Neutrophil # 4.54 X10^3/uL (2.7-7.7); Neutrophil % 57.2 % (47-70); Platelet Count 301 K/mm3 (150-450); RBC Distribution Width CV 15.5 % (11.6-14.6); Red Blood Count 4.95 M/mm3 (4.2-5.4); White Blood Count 7.9 K/mm3 (4.4-11.0)
[2024-11-13 15:36] LABS: Anion Gap 12 (5-15); BUN 10 mg/dL (7-18); Calcium,Total 9.8 mg/dL (8.5-10.1); Chloride 108 mmol/L (98-107); Creatinine, Serum 0.83 mg/dL (0.55-1.02); EST Glomerular Filtration Rate 76 mL/min (>60); Est Glom Filt Rate - Afr Amer 91 mL/min (>60); Glucose 120 mg/dL (74-106); Magnesium 1.6 mg/dL (1.6-2.6); Potassium 2.2 mmol/L (3.5-5.1); Sodium Level 137 mmol/L (136-145)
== END | disposition home or self-care (01) ==
LOC: BFHLAB 13:05
PROVIDERS: PCP Family Medicine; Referring Provider Family Medicine; Visit Provider Family Medicine
DX: E87.6 Hypokalemia (principal); D64.9 Anemia, unspecified; R79.0 Abnormal level of blood mineral
CPT/HCPCS: 36415; 80048; 83735; 85025

== ENCOUNTER → 2024-11-26 | Outpatient (CLI) | payer MEDICARE, SELFPAY ==
[2024-11-26 18:10] LABS: Potassium 2.7 mmol/L (3.5-5.1)
== END | disposition home or self-care (01) ==
LOC: MTLAB 15:29
PROVIDERS: PCP Family Medicine; Referring Provider Family Medicine; Visit Provider Family Medicine
DX: E87.6 Hypokalemia (principal)
CPT/HCPCS: 36415; 84132

== ENCOUNTER → 2024-12-03 | Outpatient (CLI) | payer MEDICARE, SELFPAY | END | disposition home or self-care (01) | LOC: MTLAB 14:19 | PROVIDERS: PCP Family Medicine; Referring Provider Family Medicine; Visit Provider Family Medicine | DX: E87.6 Hypokalemia (principal) | CPT/HCPCS: 36415; 84132 ==

== ENCOUNTER → 2024-12-13 | Outpatient (CLI) | payer MEDICARE, SELFPAY ==
[2024-12-13 17:52] LABS: Potassium 3.6 mmol/L (3.5-5.1)
== END | disposition home or self-care (01) ==
LOC: BFHLAB 15:23
PROVIDERS: PCP Family Medicine; Visit Provider Family Medicine
DX: E87.6 Hypokalemia (principal)
CPT/HCPCS: 36415; 84132

== ENCOUNTER → 2025-01-01 | Outpatient (CLI) | payer MEDICARE, SELFPAY | END | disposition home or self-care (01) | LOC: BFHLAB 14:24 | PROVIDERS: PCP Family Medicine; Visit Provider Family Medicine | DX: E87.6 Hypokalemia (principal) | CPT/HCPCS: 36415; 84132 ==

== ENCOUNTER → 2025-01-21 | Outpatient (CLI) | payer MEDICARE, SELFPAY ==
[2025-01-21 18:01] LABS: Cholesterol 167 mg/dL (200); High Density Lipoprotein 74 mg/dL; Magnesium 1.9 mg/dL (1.6-2.6); Potassium 3.7 mmol/L (3.5-5.1); Triglycerides 143 mg/dL; Very Low Density Lipoprotein 29 mg/dL (5-40)
== END | disposition home or self-care (01) ==
LOC: BFHLAB 15:26
PROVIDERS: PCP Family Medicine; Visit Provider Family Medicine
DX: E83.42 Hypomagnesemia (principal); E87.6 Hypokalemia; E78.5 Hyperlipidemia, unspecified
CPT/HCPCS: 36415; 80061; 83735; 84132

== ENCOUNTER → 2025-07-05 | Outpatient (CLI) | payer MEDICARE, SELFPAY | END | disposition home or self-care (01) | LOC: LABSPEC 15:30 | PROVIDERS: PCP Family Medicine; Referring Provider Nurse Practitioner Family; Visit Provider Nurse Practitioner Family | DX: L02.212 Cutaneous abscess of back [any part, except buttock and flank] (principal) | CPT/HCPCS: 87070; 87077; 87205 ==

== ENCOUNTER → 2025-07-15 | Outpatient (CLI) | payer MEDICARE, SELFPAY ==
[2025-07-15 17:47] LABS: Hematocrit 40.8 % (37-47); Hemoglobin 13.6 g/dL (12.0-15.0); Immature Granulocytes Count 0.010 X10^3/uL (0.0-0.0); Mean Corp Hgb Conc 33.3 g/dL (32-36); Mean Corpuscular Volume 89.3 fL (81-99); Mean Platelet Vol. 10.9 fl (6.2-12.0); NRBC Flagged by Analyzer 0 % (0-5); Platelet Count 235 K/mm3 (150-450); RBC Distribution Width CV 13.0 % (11.6-14.6); RBC Distribution Width SD 42.4 fl (35.1-43.9); Red Blood Count 4.57 M/mm3 (4.2-5.4); White Blood Count 7.0 K/mm3 (4.4-11.0)
[2025-07-15 18:15] LABS: AST(SGOT) 30 U/L (<=31); Alanine Aminotransfer ALT/SGPT 44 U/L (<=34); Albumin, Serum 4.4 g/dL (3.5-5.0); Alkaline Phosphatase 111 U/L (35-104); Anion Gap 15 (5-15); BUN 11 mg/dL (4-19); BUN/Creat Ratio 19.1 RATIO (10-20); Calcium,Total 10.0 mg/dL (7.6-11.0); Carbon Dioxide 21.3 mmol/L (21.0-32.0); Chloride 105 mmol/L (98-108); Cholesterol 159 mg/dL (<=200); Globulin 2.7 g/dL (2.2-4.2); Glucose 83 mg/dL (70-99); Low Density Lipoprotein Calc. 54 mg/dL; Potassium 3.9 mmol/L (3.3-5.1); Triglycerides 144 mg/dL; Very Low Density Lipoprotein 29 mg/dL (5-40); cholesterol:hdl ratio screen 2.08
[2025-07-15 18:17] LABS: CRP < 3.00 mg/L (0.0-3.0); Magnesium 1.6 mg/dL (1.5-2.2)
== END | disposition home or self-care (01) ==
LOC: BFHLAB 15:06 → LAB 15:57
PROVIDERS: PCP Family Medicine; Referring Provider Family Medicine; Visit Provider Family Medicine
DX: E83.42 Hypomagnesemia (principal); E78.5 Hyperlipidemia, unspecified; E87.6 Hypokalemia; L03.90 Cellulitis, unspecified
CPT/HCPCS: 36415; 80053; 80061; 83735; 85025; 85652; 86140; 87040